=== PATIENT | male | born 1960 | race African-American/Black ===

== ENCOUNTER 2022-08-26 17:44 | Emergency (ER) | payer BC ==
[~2022-08-26] VITALS: Ht 175.3 cm; Wt 97.0 kg
[2022-08-26 18:27] LABS: HEMATOCRIT 30.8 % (39.0-50.0); HEMOGLOBIN 8.8 g/dl (14.0-18.0); IMMATURE GRANULOCYTES 0.1 % (0.0-5.0); MEAN CELL VOLUME 60.9 fL CALC (80.0-100.0); MEAN CORPUSCULAR HGB 17.4 pG CALC (26.0-32.0); MEAN CORPUSCULAR HGB CONC 28.6 g/dL CAL (32.0-36.0); NEUT# 7.12 thou/uL (1.82-7.42); RED BLOOD COUNT 5.06 mill/uL (4.70-6.10); RED CELL DISTRI WIDTH 19.5 % (11.5-15.5)
[2022-08-26 18:31] LABS: GFR FOR AFR.AMER. > 60 ML/MIN (>=60 (CALC)); GFR OTHER RACES > 60 ML/MIN (>=60 (CALC))
[2022-08-26 18:46] LABS: ALBUMIN 4.6 g/dL (3.2-5.0); ALKALINE PHOSPHATASE 95 u/l (38-126); ANION GAP 16 (6-22 (CALC)); BUN 8 mg/dL (9-20); BUN/CREATININE RATIO 11 (12-20 (CALC)); CARBON DIOXIDE 23 mmol/l (22-30); CHLORIDE 95 mmol/l (95-108); CREATININE 0.7 mg/dL (0.7-1.3); GFR FOR AFR.AMER. > 60 ML/MIN (>=60 (CALC)); GFR OTHER RACES > 60 ML/MIN (>=60 (CALC)); LIPASE 33 u/l (23-300); POTASSIUM 3.8 mmol/l (3.5-5.1); SGOT/AST 48 u/l (17-59); SODIUM 130 mmol/l (137-146)
[2022-08-26 20:26] LABS: URINE BILIRUBIN - DIPSTICK NEGATIVE (NEGATIVE); URINE BLOOD DIPSTICK NEGATIVE (NEGATIVE); URINE COLOR YELLOW; URINE GLUCOSE - DIPSTICK NEGATIVE (NEGATIVE); URINE KETONE NEGATIVE (NEGATIVE); URINE LEUK ESTERASE NEGATIVE (NEGATIVE); URINE PH 5.5 (4.5-8.0); URINE PROTEIN - DIPSTICK NEGATIVE (NEG-TRACE); URINE UROBILINOGEN - DIPSTICK 0.2 E.U./dL (0.2)
[2022-08-26 20:27] LABS: URINE NITRITE - DIPSTICK NEGATIVE (Negative)
[2022-08-26] MEDS ORDERED: TRAMADOL HCL50 MG PO (21:12)
[2022-08-26] MEDS ORDERED: MIRALAX17 GM PO (21:12)
[2022-08-26 21:17] VITALS: BP 165/98
== END 2022-08-26 21:38 | disposition home or self-care (01) | DRG 392 ==
LOC: ED 17:44
PROVIDERS: Family Medicine
DX: R10.12 Left upper quadrant pain (principal); R10.11 Right upper quadrant pain
CPT/HCPCS: Q9967